=== PATIENT | male | born 1955 | race Caucasian/White ===

== ENCOUNTER 2017-10-28 11:58 | Emergency (ER) | payer OTHER | END 2017-10-28 13:05 | disposition home or self-care (01) | LOC: M ED 11:58 | DX: J20.9 Acute bronchitis, unspecified (principal); Z88.1 Allergy status to other antibiotic agents; Z79.899 Other long term (current) drug therapy | CPT/HCPCS: 99282 ==

== ENCOUNTER → 2020-05-03 | Outpatient (REF) | payer OTHER ==
[~2020-05-03] MED LIST: GUAISYP4 PO; OMEP40CA97 PO; OXYB5TAB10 PO; PROAAER10 INH; SIMV20TA22 PO; TESS100C PO; VITA-112 PO
== END ==
LOC: M LAB REF 17:27
PROVIDERS: ATTEND Physician Assistant Medical
DX: Z20.828 Contact with and (suspected) exposure to other viral communicable diseases (principal)

== ENCOUNTER → 2020-08-16 | Outpatient (CLI) | payer SELFPAY | LOC: M LABSMTC 17:06 | PROVIDERS: ATTEND Pediatrics | DX: Z11.59 Encounter for screening for other viral diseases (principal) ==